=== PATIENT | female | born 1950 | race Caucasian/White ===

== ENCOUNTER 2018-05-24 08:58 | Emergency (ER) | payer OTHER ==
[2018-05-24 09:05] VITALS: BP 147/85; PULSE 77; TEMP 98.2; BMI 39.1
--- NOTE | 2018-05-24 09:35 | PDOC ---
History of Present Illness - General Chief Complaint: Eye Problem Stated Complaint: EYE PROBLEM Time Seen by Provider: 05/24/18 09:22 History Source: Patient Exam Limitations: Clinical Condition - History of Present Illness Initial Comments: 05/24/18 09:35 Patient with history of hypertension and diabetes presenting with complain of redness in bilateral eyes and swelling around the eyelids for a week now. Patient saw ophthalmology 4 days ago who prescribed her Pataday ALLERGY eyedrops and reported symptoms not improving with the prescribed eye drops. Denies any other symptoms Timing/Duration: 1 week Past History - Past Medical History Allergies/Adverse Reactions: Allergies Allergy/AdvReac Type Severity Reaction Status Date / Time No Known Allergies Allergy Verified 05/24/18 09:02 Home Medications: Ambulatory Orders Ketotifen Fumarate [Zaditor] 2 drop OP BID PRN #1 bottle 05/24/18 Loratadine 10 mg PO DAILY #10 tablet 05/24/18 COPD: No Diabetes: Yes (TYPE II, ORAL MEDS) HTN: Yes Hypercholesterolemia: Yes - Surgical History Appendectomy: Yes - Suicide/Smoking/Psychosocial Hx Smoking Status: No Smoking History: Never smoked Number of Cigarettes Smoked Daily: 0 Information on smoking cessation initiated: No Substance Use Type: None Review of Systems - Review of Systems Able to Perform ROS?: Yes Is the patient limited Belgian proficient: No Constitutional: No: Chills, Diaphoresis, Fever, Loss of Appetite, Malaise, Night Sweats, Weakness, Weight Stable, Unintentional Wgt. Loss, Unexplained wgt Loss, Other HEENTM: Yes: Eye Pain, Tearing. No: Blurred Vision, Recent change in vision, Double Vision, Cataracts, Ear Pain, Ocular Prothesis, Ear Discharge, Nose Pain, Nose Congestion, Tinnitus, Nose Bleeding, Hearing Loss, Throat Pain, Throat Swelling, Mouth Pain, Dental Problems, Difficulty Swallowing, Mouth Swelling, Other Respiratory: No: Cough, Orthopnea, Shortness of Breath, SOB with Exertion, SOB at Rest, Stridor, Wheezing, Productive cough, Hemoptysis, Other Cardiac (ROS): No: Chest Pain, Edema, Irregular Heart Rate, Lightheadedness, Palpitations, Syncope, Chest Tightness, Other ABD/GI: No: Abdominal Distended, Abd. Pain w/ defecation, Blood Streaked Bowels , Constipated, Diarrhea, Difficulty Swallowing, Nausea, Poor Appetite, Poor Fluid Intake, Rectal Bleeding, Vomiting, Indigestion, Abdominal cramping, Tarry Stools, Other Musculoskeletal: No: Back Pain, Gout, Joint Pain, Joint Swelling, Muscle Pain, Muscle Weakness, Neck Pain, Joint Stiffness, Other All Other Systems: Reviewed and Negative *Physical Exam - Vital Signs Last Vital Signs Temp Pulse Resp BP Pulse Ox 98.2 F 77 18 147/85 95 05/24/18 09:02 05/24/18 09:02 05/24/18 09:02 05/24/18 09:02 05/24/18 09:02 - Physical Exam Comments: 05/24/18 09:37 GENERAL: Well developed, well nourished. Awake and alert. No acute distress. HEENT: Mildly injected bilateral conjunctivae. Moderate swelling around bilateral upper and lower eyelids. No erythema to eyelids.Normocephalic, atraumatic. PERRLA, EOMI. Sclera are non-icteric. Moist mucous membranes. Oropharynx is clear. NECK: Supple. Full ROM. No JVD. Carotid pulses 2+ and symmetric, without bruits. No thyromegaly. No lymphadenopathy. CARDIOVASCULAR: Regular rate and rhythm. No murmurs, rubs, or gallops. Distal pulses are 2+ and symmetric. PULMONARY: No evidence of respiratory distress. Lungs clear to auscultation bilaterally. No wheezing, rales or rhonchi. ABDOMINAL: Soft. Non-tender. Non-distended. No rebound or guarding. No organomegaly. Normoactive bowel sounds. MUSCULOSKELETAL Normal range of motion at all joints. No bony deformities or tenderness. No CVA tenderness. EXTREMITIES: No cyanosis. No clubbing. No edema. No calf tenderness. SKIN: Warm and dry. Normal capillary refill. No rashes. No jaundice. NEUROLOGICAL: Alert, awake, appropriate. Cranial nerves 2-12 intact. No deficits to light touch and temperature in face, upper extremities and lower extremities. No motor deficits in the in face, upper extremities and lower extremities. Normoreflexic in the upper and lower extremities. Normal speech. Toes are down- going bilaterally. Gait is normal without ataxia. PSYCHIATRIC: Cooperative. Good eye contact. Appropriate mood and affect. General Appearance: Yes: Nourished, Appropriately Dressed. No: Apparent Distress Medical Decision Making - Medical Decision Making 05/24/18 09:38 Patient with history of hypertension and diabetes presenting with complain of 1 week history of redness and swelling to bilateral eyes which she saw ophthalmology and was being treated for ALLERGY conjunctivitis. Exam shows mildly injected bilateral conjunctivae was swelling of bilateral upper and lower eyelids consistent with ALLERGIC rhinitis and conjunctivitis. Patient will be treated with different eyedrops and antihistamine with ophthalmology follow-up *DC/Admit/Observation/Transfer Diagnosis at time of Disposition: Conjunctivitis Qualifiers: Conjunctivitis type: acute Acute conjunctivitis type: unspecified Laterality: bilateral Qualified Code(s): H10.33 - Unspecified acute conjunctivitis, bilateral - Discharge Dispostion Disposition: HOME Condition at time of disposition: Stable Decision to Admit order: No - Prescriptions Prescriptions: Ketotifen Fumarate [Zaditor] 2 drop OP BID PRN #1 bottle PRN Reason: eye redness Loratadine 10 mg PO DAILY #10 tablet - Referrals Referrals: Karen Wylie [Primary Care Provider] - Ana Maria Bueno MD [Staff Physician] - - Patient Instructions Printed Discharge Instructions: How to Instill Eye Drops Additional Instructions: Use medications as prescribed. Follow-up with typewriter repairer as scheduled - Post Discharge Activity
== END 2018-05-24 10:01 | disposition home or self-care (01) ==
LOC: JERFT 08:58
DX: H10.33 Unspecified acute conjunctivitis, bilateral (principal); I10 Essential (primary) hypertension; E11.9 Type 2 diabetes mellitus without complications; Z79.84 Long term (current) use of oral hypoglycemic drugs; E78.00 Pure hypercholesterolemia, unspecified
CPT/HCPCS: 99281-25

== ENCOUNTER → 2018-06-24 | Day surgery (SDC) | payer OTHER ==
--- NOTE | 2018-06-25 17:21 | PATH ---
Surgical Pathology Report Patient Name: MELISSA LEY [facility]. Rec. #: [id number] /Age/Gender: 1950 (Age: 67) / F Account: [id number] Location: [facility] Taken: 06/24/2018 Received: 06/24/2018 Reported: 06/25/2018 Physicians: Jose Garcia M.D. Specimen(s) Received A: LEFT BREAST SPECIMEN WITH CALCIFICATIONS B: LEFT BREAST SPECIMEN WITHOUT CALCIFICATIONS Clinical History Nonpalpable lesion Mammographic findings: Microcalcification, suspicious Final Diagnosis A. BREAST, LEFT, WITH CALCIFICATIONS, STEREOTACTIC CORE BIOPSY: RADIAL SCLEROSING LESION WITH ASSOCIATED FIBROCYSTIC CHANGES INCLUDING STROMAL FIBROSIS/ELASTOSIS, MICROCYSTS, APOCRINE METAPLASIA, FOCAL USUAL DUCTAL HYPERPLASIA, AND RARE MICROCALCIFICATIONS. B. BREAST, LEFT, WITHOUT CALCIFICATIONS, STEREOTACTIC CORE BIOPSY: RADIAL SCLEROSING LESION WITH ASSOCIATED FIBROCYSTIC CHANGES INCLUDING STROMAL FIBROSIS/ELASTOSIS, MICROCYSTS, APOCRINE METAPLASIA, SCLEROSING ADENOSIS, FOCAL USUAL DUCTAL HYPERPLASIA, AND MICROCALCIFICATIONS. Comment: Suggest clinical/radiological relation. Electronically Signed Mavis Vasquez M.D. Gross Description A. Received in formalin labeled "left breast with calcifications," are 4 steele-yellow, cylindrical portions of fibroadipose tissue ranging from 1.5-2.0 cm in length and averaging 0.3 cm in diameter. The specimens are submitted in toto in one cassette. B. Received in formalin labeled "left breast without calcifications," are 4 steele-yellow, cylindrical portions of fibroadipose tissue ranging from 1.2-2.0 cm in length and averaging 0.3 cm in diameter. The specimens are submitted in toto in one cassette. Time to formalin fixation: Less than one minute Total formalin fixation time: Approximately 8 hours. /06/24/2018 saudi/06/24/2018
== END | disposition home or self-care (01) ==
LOC: FMAMMOTONE 08:37
PROVIDERS: ATTEND Internal Medicine
PROC: 0HBU3ZX Excision of Left Breast, Percutaneous Approach, Diagnostic (ICD-10-PCS; principal; 2018-06-24)
DX: N60.12 Diffuse cystic mastopathy of left breast (principal); N60.32 Fibrosclerosis of left breast; N60.82 Other benign mammary dysplasias of left breast; N64.89 Other specified disorders of breast; R92.1 Mammographic calcification found on diagnostic imaging of breast
CPT/HCPCS: 19081; 87899; 88305-TC; A4648

== ENCOUNTER 2019-08-01 07:56 | Inpatient (IN) | payer OTHER ==
[2019-08-01] MEDS ORDERED: morphine CARPU-JECT 4 MG/1 ML DISP.SYRIN IVPUSH ONE ×2 (08:20→13:27)
[2019-08-01] MEDS ORDERED: ONDANSETRON 4 MG/2 ML VIAL IVPUSH ONE (08:21)
[2019-08-01] MEDS ORDERED: morphine SULFATE 4 MG/ML VIAL ONE ×2 (08:25→13:47)
[2019-08-01] MEDS ORDERED: ONDANSETRON 4 MG/2 ML VIAL ONE (08:26)
[2019-08-01] MEDS ORDERED: SODIUM CHLORIDE 1,000 ML IV STA (08:36)
[2019-08-01 08:44] LABS: BASO % 0.3 % (0-2.0); HEMATOCRIT 47.4 % (32.4-45.2); HEMOGLOBIN 15.9 GM/dL (10.7-15.3); LYMPH % 7.7 % (8-40); MCH 28.1 pg (25.7-33.7); MCHC 33.6 g/dl (32.0-36.0); MEAN CELL VOLUME 83.5 fl (80-96); MEAN PLT VOLUME 9.2 fl (7.5-11.1); MONO % 3.1 % (3.8-10.2); NEUT % 88.9 % (42.8-82.8); PLATELET COUNT 256 K/MM3 (134-434); RBC 5.68 M/mm3 (3.60-5.2); RDW 14.3 % (11.6-15.6); WHITE BLOOD COUNT 17.9 K/mm3 (4.0-10.0)
--- NOTE | 2019-08-01 08:53 | PDOC ---
History of Present Illness - General Chief Complaint: Blood Pressure Problem Stated Complaint: VOMITING,ABD PAIN Time Seen by Provider: 08/01/19 08:15 History Source: Patient Exam Limitations: No Limitations - History of Present Illness Initial Comments: 08/01/19 13:26 68 yo F with a hx of HTN, HLD, and DM presents to the emergency department with sudden onset of epigastric pain that radiates to the back that awoken her overnight. Per the patient, she began having epigastric pain last night that radiated to the RUQ and LUQ regions. The patient states the pain radiated to her back over night. The pain is rated 10/10 and described as sharp without aggravating or relieving factors. Endorses concurrent nausea and vomiting. Denies the following: fever, chills, SOB, visual disturbance, dysuria, and diarrhea. Allergies: NKDA Past History - Past Medical History Allergies/Adverse Reactions: Allergies Allergy/AdvReac Type Severity Reaction Status Date / Time No Known Allergies Allergy Verified 08/01/19 08:09 Home Medications: Ambulatory Orders Atorvastatin Ca [Lipitor] 10 mg PO HS 08/01/19 Difluprednate [Durezol] 5 ml OP TID 08/01/19 Losartan Potassium [Cozaar -] 50 mg PO DAILY 08/01/19 Metformin HCl [Glucophage] 500 mg PO TID 08/01/19 Amoxicillin/Potassium Clav [Augmentin 875-125 Tablet] 1 each PO BID #10 tablet 08/04/19 Amlodipine Besylate [Norvasc -] 10 mg PO DAILY #30 tablet 08/05/19 COPD: No Diabetes: Yes (TYPE II, ORAL MEDS) HTN: Yes Hypercholesterolemia: Yes - Surgical History Appendectomy: Yes - Psycho Social/Smoking Cessation Hx Smoking Status: No Smoking History: Never smoked Number of Cigarettes Smoked Daily: 0 Hx Alcohol Use: No Drug/Substance Use Hx: No Substance Use Type: None Review of Systems - Review of Systems Able to Perform ROS?: Yes Is the patient limited Mexican proficient: No Constitutional: No: Chills, Diaphoresis, Fever, Weakness HEENTM: No: Eye Pain, Ear Pain, Nose Pain, Throat Pain, Mouth Pain Respiratory: No: Cough, Shortness of Breath, Hemoptysis Cardiac (ROS): No: Chest Pain, Lightheadedness, Palpitations, Chest Tightness ABD/GI: Yes: Nausea, Vomiting, Abdominal cramping. No: Constipated, Diarrhea, Rectal Bleeding, Tarry Stools : No: Dysuria, Flank Pain, Hematuria Musculoskeletal: No: Back Pain, Joint Pain, Neck Pain Integumentary: No: Bruising, Erythema, Rash Neurological: No: Headache, Numbness, Tingling, Tremors Psychiatric: No: Change in Appetite Endocrine: No: Unexplained Weight Gain Hematologic/Lymphatic: No: Anemia *Physical Exam - Vital Signs Last Vital Signs Temp Pulse Resp BP Pulse Ox 97.6 F 104 H 20 233/125 H 96 08/01/19 08:09 08/01/19 08:09 08/01/19 08:09 08/01/19 08:09 08/01/19 08:09 - Physical Exam General Appearance: Yes: Nourished, Appropriately Dressed, Mild Distress, Obese. No: Intoxicated HEENT: positive: EOMI, VIVIAN, Normal ENT Inspection, Normal Voice, Symmetrical, TMs Normal, Pharynx Normal, Hearing Grossly Normal. negative: Pale Conjunctivae , Scleral Icterus (R), Scleral Icterus (L), Muffled/Hoarse voice, Pharyngeal Erythema, Tonsillar Exudate, Tonsillar Erythema, Nasal Congestion, Rhinorrhea, Excessive drooling Neck: positive: Trachea midline, Supple. negative: Tender, Lymphadenopathy (R) , Lymphadenopathy (L), Tender lateral, Tender midline Respiratory/Chest: positive: Crackles (bilaterally at bases). negative: Chest Tender, Lungs Clear, Normal Breath Sounds, Respiratory Distress, Accessory Muscle Use Cardiovascular: positive: Regular Rhythm, Regular Rate, S1, S2. negative: Systolic Murmur Gastrointestinal/Abdominal: positive: Normal Bowel Sounds, Flat, Soft. negative : Tender (hernia noted on exam that is reducible), Mass Lymphatic: negative: Adenopathy Musculoskeletal: positive: Normal Inspection. negative: CVA Tenderness, Vertebral Tenderness Extremity: positive: Normal Capillary Refill, Normal Range of Motion, Swelling ( bilateral edema). negative: Tender Integumentary: positive: Normal Color, Dry, Warm Neurologic: positive: tutorial laboratory supervisor II-XII NML intact, Fully Oriented, Alert, Normal Mood/ Affect, Normal Response, Motor Strength 5/5 Heart Score/ECG Review - History History: Moderately suspicious - Electrocardiogram EKG: Normal - Age Age: >/= 65 - Risk Factors Risk Factors Heart Score: Yes Hx Hypercholesterolemia, Yes Hx Hypertension, Yes Hx Diabetes, Yes Hx Obesity Based on the list above the patient has:: >/=3 risk factors or Hx atherosclerotic disease - Troponin Troponin: </= normal limit - Score Heart Score - Total: 5 ED Treatment Course - LABORATORY CBC & Chemistry Diagram: 08/05/19 05:35 08/05/19 05:35 - ADDITIONAL ORDERS Additional order review: 08/01/19 08:20 RBC 5.68 H MCV 83.5 MCHC 33.6 RDW 14.3 MPV 9.2 Neutrophils % 88.9 H Lymphocytes % 7.7 L Monocytes % 3.1 L Eosinophils % 0.0 Basophils % 0.3 - Medications Given in the ED: ED Medications Discontinued Medications Generic Name Dose Route Start Last Admin Trade Name Freq PRN Reason Stop Dose Admin Morphine Sulfate 4 mg 08/01/19 08:20 08/01/19 08:25 Morphine Injection - IVPUSH 08/01/19 08:21 4 mg ONCE ONE Administration Ondansetron HCl 4 mg 08/01/19 08:21 08/01/19 08:25 Zofran Injection IVPUSH 08/01/19 08:22 4 mg ONCE ONE Administration Medical Decision Making - Critical Care Time Total Critical Care Time (minutes): 60 Critical Care Statement: The care of this patient involved high complexity decision making to prevent further life threatening deterioration of the patient 's condition and/or to evaluate & treat vital organ system(s) failure or risk of failure. - Medical Decision Making 68 yo F with a hx of HTN, HLD, and DM presents to the emergency department with sudden onset of epigastric pain that radiates to the back that awoken her overnight. Initial vitals: Initial Vital Signs Temp Pulse Resp BP Pulse Ox 97.6 F 104 H 20 233/125 H 96 08/01/19 08:09 08/01/19 08:09 08/01/19 08:09 08/01/19 08:09 08/01/19 08:09 Patient presents to the emergency department in distress with abdominal pain with radiation to the back in the setting of severe HTN (233/125). per the patient, she is compliant with her medications. Radial pulses intact bilaterally and equal. Ddx: pancreatitis vs aortic dissection vs aortic aneurysm sentinel bleed vs mesenteria ischemia. Laboratory Tests 08/01/19 08/01/19 08/01/19 07:08 08:20 08:20 WBC 17.9 H RBC 5.68 H Hgb 15.9 H Hct 47.4 H MCV 83.5 MCH 28.1 MCHC 33.6 RDW 14.3 Plt Count 256 MPV 9.2 Absolute Neuts (auto) 15.9 H Neutrophils % 88.9 H Lymphocytes % 7.7 L Monocytes % 3.1 L Eosinophils % 0.0 Basophils % 0.3 Nucleated RBC % 0 PT with INR 12.20 INR 1.03 PTT (Actin FS) 32.9 Sodium Potassium Chloride Carbon Dioxide Anion Gap BUN Creatinine Est GFR (CKD-EPI)AfAm Est GFR (CKD-EPI)NonAf Random Glucose Calcium Total Bilirubin AST ALT Alkaline Phosphatase Creatine Kinase Creatine Kinase Index CK-MB (CK-2) Troponin I Total Protein Albumin Lipase Urine Color Urine Appearance Urine pH Ur Specific [place] Urine Protein Urine Glucose (UA) Urine Ketones Urine Blood Urine Nitrite Urine Bilirubin Urine Urobilinogen Ur Leukocyte Esterase Urine WBC (Auto) Urine RBC (Auto) U Epithel Cells (Auto) Urine Bacteria (Auto) Blood Type AB POSITIVE Antibody Screen 08/01/19 08/01/19 08/01/19 08:20 08:20 11:20 WBC RBC Hgb Hct MCV MCH MCHC RDW Plt Count MPV Absolute Neuts (auto) Neutrophils % Lymphocytes % Monocytes % Eosinophils % Basophils % Nucleated RBC % PT with INR INR PTT (Actin FS) Sodium 135 L Potassium 4.0 Chloride 99 Carbon Dioxide 25 Anion Gap 11 BUN 14.0 Creatinine 1.1 Est GFR (CKD-EPI)AfAm 58.91 Est GFR (CKD-EPI)NonAf 50.83 Random Glucose 223 H Calcium 9.8 Total Bilirubin 0.5 AST 28 ALT 38 Alkaline Phosphatase 107 Creatine Kinase 166 Creatine Kinase Index 1.2 CK-MB (CK-2) 2.0 Troponin I < 0.02 Total Protein 8.9 H Albumin 4.0 Lipase 199 Urine Color Yellow Urine Appearance Clear Urine pH 6.0 Ur Specific [place] 1.015 Urine Protein 3+ H Urine Glucose (UA) Negative Urine Ketones Negative Urine Blood 1+ H Urine Nitrite Negative Urine Bilirubin Negative Urine Urobilinogen 0.2 Ur Leukocyte Esterase Negative Urine WBC (Auto) 2-7 Urine RBC (Auto) 3-5 U Epithel Cells (Auto) Few Urine Bacteria (Auto) None seen Blood Type AB POSITIVE Antibody Screen Negative Labtalol was given for BP support. Morphine for analgesic control. zofran for nausea control. leukocytosis noted with a negative trop and lipase. UA negative Patient's imaging was negative for acute process. no dissection or aneurysm noted. EKG: sinus rhythm with APCs with QTc prolongation (526 ms) with bifasicular block). No ST elevations or depressions. RUQ consistent with cholecysitits. Patient was endorsed to admission team for cholecystitis and HTN urgency with trending troponins to rule out ACS. Discharge - Discharge Information Problems reviewed: Yes Clinical Impression/Diagnosis: Chest pain, RUQ abdominal pain, HTN (hypertension) - Follow up/Referral - Patient Discharge Instructions - Post Discharge Activity
[2019-08-01] MEDS ORDERED: LABETALOL HCL 5 MG/1 ML (100MG/20 ML VIAL) IVPUSH ONE (09:03)
[2019-08-01 09:07] LABS: INR 1.03 (0.83-1.09); PROTHROMBIN TIME (PATIENT) 12.2 SEC (9.7-13.0)
[2019-08-01 09:09] LABS: ACTIVATED PTT 32.9 SECONDS (25.2-36.5)
[2019-08-01] MEDS ORDERED: LABETALOL HCL 5 MG/1 ML (200MG/40ML VIAL) IVPB ONE (09:18)
[2019-08-01 09:22] LABS: ALK PHOS 107 U/L (45-117); ANION GAP 11 MMOL/L (8-16); BILIRUBIN,TOTAL 0.5 mg/dL (0.2-1); CALCIUM 9.8 mg/dL (8.5-10.1); CHLORIDE 99 mmol/L (98-107); CO2 25 mmol/L (21-32); CREATININE 1.1 mg/dL (0.55-1.3); GLUCOSE,RANDOM 223 mg/dL (74-106); LIPASE 199 U/L (73-393); SGOT/AST 28 U/L (15-37); SGPT/ALT 38 U/L (13-61); SODIUM 135 mmol/L (136-145); TOT PROT 8.9 g/dl (6.4-8.2)
[2019-08-01] MEDS ORDERED: ACETAMINOPHEN 1000 MG/100 ML VIAL (NON FORMULARY) IVPB ONE (09:30)
--- NOTE | 2019-08-01 09:32 | PDOC ---
Attending Attestation - Resident Resident Name: Herbert Peacock - ED Attending Attestation I have performed the following: I have examined & evaluated the patient, The case was reviewed & discussed with the resident, I agree w/resident's findings & plan - HPI HPI: 08/01/19 09:27 5-year-old female with history of hypertension, diabetes, high cholesterol presents with abdominal pain since midnight with nausea/vomiting. Patient was in her usual state of relatively good health, late last night began developing epigastric pain that was persistent throughout the night, associated with nonbloody nonbilious nausea/vomiting, normal bowel movements, no urinary complaints. No chest pain or shortness of breath, presents for evaluation now for persistent symptoms. Patient was noted to be hypertensive on arrival, reports compliance with her medications, at baseline systolic blood pressures in the 150 range. On review of systems, she denied any headache/vision change/speech change/focal deficit/shortness of breath. - Physicial Exam PE: 08/01/19 09:28 Significantly elevated blood pressure as noted, slight tachycardia, O2 sat ranging between 90 to 97% on room air Alert, obese female lying in stretcher speaking full sentences in mild distress Pupils are reactive bilaterally, speech is clear, no JVD Heart is overall regular with frequent premature beats on monitor, lungs with slight crackles at both bases Abdomen is soft, no palpable pulsatile masses, easily reducible umbilical hernia , no CVA tenderness. Tenderness with some guarding in the right mid/right upper quadrant, no rash. Trace bilateral lower externally edema Neurologically intact - Critical Care Time Total Critical Care Time: 60 Critical Care Statement: The care of this patient involved high complexity decision making to prevent further life threatening deterioration of the patient 's condition and/or to evaluate & treat vital organ system(s) failure or risk of failure. - Medical Decision Making 08/01/19 09:30 5-year-old female with history of hypertension, diabetes, high cholesterol presents with severely elevated blood pressures and epigastric pain throughout the night, no specific cardiopulmonary complaints or neurological complaints. Given the epigastric/back pain initially reported in the setting of very elevated blood pressures, concern for aortic dissection was high. IV access was obtained, EKG was performed, and stat CT of the chest/abdomen/pelvis was performed to rule out dissection. Patient was given labetalol for blood pressure control, morphine and Zofran for symptom control Labs sent, imaging pending Differential includes dissection, ACS, hypertensive emergency versus primary GI pathology such as gastritis or cholelithiasis/cholecystitis. 08/01/19 11:10 leukocytosis 18, remaining labs wnl. BP improved after labetalol, 140/73 and HR 70s and sinus. Remains comfortable without acute distress. CTAP without evidence of dissection/aneurysm or mesenteric ischemia. proceed with admission for HTN urgency, COURTNEY. RUQ U/S and UA pending given leukocytosis. Heart Score/ECG Review #1 ECG reviewed & interpreted by me at: 08:56 General ECG Interpretation: Sinus Rhythm (sinus with APCs), Normal Rate (100), Normal Intervals (qtc prlonged 526, QRS 160 with bifascicular block (RBBB+LAFB)) , No acute ischemic changes Compared to previous ECG there are: Previous ECG unavail
[2019-08-01] MEDS ORDERED: ACETAMINOPHEN INJECTION 100 ML IVPB ONE (09:34)
[2019-08-01 11:40] LABS: URINE APPEARANCE Clear; URINE BILIRUBIN Negative (NEGATIVE); URINE COLOR Yellow; URINE GLUCOSE (UA) Negative (NEGATIVE); URINE KETONE Negative (NEGATIVE); URINE LEUK ESTERASE Negative (NEGATIVE); URINE NITRITE Negative (NEGATIVE); URINE PROTEIN 3+ (NEGATIVE); URINE UROBILINOGEN 0.2 mg/dL (0.2-1.0)
[2019-08-01 15:05] LABS: EPI CELLS FEW /HPF (0-5/HPF); URINE BACTERIA NONE SEEN /hpf (NEGATIVE)
--- NOTE | 2019-08-01 17:20 | HP ---
Admitting History and Physical - Primary Care Physician PCP: Tracey Wisdom - Admission History of Present Illness: 68 yo F with a hx of HTN, HLD, and DM presents to the emergency department with sudden onset of epigastric pain that radiates to the back that awoken her overnight. Per the patient, she began having epigastric pain last night that radiated to the RUQ and LUQ regions. The patient states the pain radiated to her back over night. The pain is rated 10/10 and described as sharp without aggravating or relieving factors. Endorses concurrent nausea and vomiting. - Smoking History Smoking history: Never smoked Aproximately how many cigarettes per day: 0 - Alcohol/Substance Use Hx Alcohol Use: No Home Medications - Allergies Allergies/Adverse Reactions: Allergies Allergy/AdvReac Type Severity Reaction Status Date / Time No Known Allergies Allergy Verified 08/01/19 08:09 - Home Medications Home Medications: Ambulatory Orders Atorvastatin Ca [Lipitor] 10 mg PO HS 08/01/19 Difluprednate [Durezol] 5 ml OP TID 08/01/19 Losartan Potassium [Cozaar -] 50 mg PO DAILY 08/01/19 Metformin HCl [Glucophage] 500 mg PO TID 08/01/19 Physical Examination Vital Signs: Vital Signs Temperature 97.7 F 08/01/19 15:34 Pulse Rate 107 H 08/01/19 17:13 Respiratory Rate 16 08/01/19 17:13 Blood Pressure 161/64 08/01/19 17:13 O2 Sat by Pulse Oximetry (%) 95 08/01/19 15:34 Constitutional: Yes: No Distress HENT: Yes: Atraumatic Neck: Yes: Supple Cardiovascular: Yes: Regular Rate and Rhythm Respiratory: Yes: CTA Bilaterally Gastrointestinal: Yes: Tenderness (ruq) Extremities: Yes: WNL Neurological: Yes: Alert, Oriented Labs: CBC, BMP 08/01/19 08:20 08/01/19 08:20 Imaging - Results Cat Scan: Report Reviewed Problem List - Problems (1) RUQ abdominal pain Assessment/Plan: acute kishore d/w surgery need cardiac clearance Code(s): R10.11 - RIGHT UPPER QUADRANT PAIN (2) Chest pain Assessment/Plan: troponins negative Code(s): R07.9 - CHEST PAIN, UNSPECIFIED Assessment/Plan Laboratory Tests 08/01/19 08/01/1908/01/19 08:20 08:20 08:20 WBC 17.9 H RBC 5.68 H Hgb 15.9 H Hct 47.4 H MCV 83.5 MCH 28.1 MCHC 33.6 RDW 14.3 Plt Count 256 MPV 9.2 Absolute Neuts (auto) 15.9 H Neutrophils % 88.9 H Lymphocytes % 7.7 L Monocytes % 3.1 L Eosinophils % 0.0 Basophils % 0.3 Nucleated RBC % 0 PT with INR 12.20 INR 1.03 PTT (Actin FS) 32.9 Sodium Potassium Chloride Carbon Dioxide Anion Gap BUN Creatinine Est GFR (CKD-EPI)AfAm Est GFR (CKD-EPI)NonAf Random Glucose Calcium Total Bilirubin AST ALT Alkaline Phosphatase Creatine Kinase Creatine Kinase Index CK-MB (CK-2) Troponin I Total Protein Albumin Lipase Urine Color Urine Appearance Urine pH Ur Specific [place] Urine Protein Urine Glucose (UA) Urine Ketones Urine Blood Urine Nitrite Urine Bilirubin Urine Urobilinogen Ur Leukocyte Esterase Urine WBC (Auto) Urine RBC (Auto) U Epithel Cells (Auto) Urine Bacteria (Auto) Blood Type AB POSITIVE Antibody Screen Negative 08/01/19 08/01/19 08:20 11:20 WBC RBC Hgb Hct MCV MCH MCHC RDW Plt Count MPV Absolute Neuts (auto) Neutrophils % Lymphocytes % Monocytes % Eosinophils % Basophils % Nucleated RBC % PT with INR INR PTT (Actin FS) Sodium 135 L Potassium 4.0 Chloride 99 Carbon Dioxide 25 Anion Gap 11 BUN 14.0 Creatinine 1.1 Est GFR (CKD-EPI)AfAm 58.91 Est GFR (CKD-EPI)NonAf 50.83 Random Glucose 223 H Calcium 9.8 Total Bilirubin 0.5 AST 28 ALT 38 Alkaline Phosphatase 107 Creatine Kinase 166 Creatine Kinase Index 1.2 CK-MB (CK-2) 2.0 Troponin I < 0.02 Total Protein 8.9 H Albumin 4.0 Lipase 199 Urine Color Yellow Urine Appearance Clear Urine pH 6.0 Ur Specific [place] 1.015 Urine Protein 3+ H Urine Glucose (UA) Negative Urine Ketones Negative Urine Blood 1+ H Urine Nitrite Negative Urine Bilirubin Negative Urine Urobilinogen 0.2 Ur Leukocyte Esterase Negative Urine WBC (Auto) 2-7 Urine RBC (Auto) 3-5 U Epithel Cells (Auto) Few Urine Bacteria (Auto) None seen Blood Type Antibody Screen Active Medications Generic Name Dose Route Start Last Admin Trade Name Freq PRN Reason Stop Dose Admin Acetaminophen 1,000 mg 08/02/19 15:59 Ofirmev Injection - IVPB Q6H PRN FEVER Enalaprilat 1.25 mg 08/02/19 16:00 08/02/19 19:12 Vasotec Injection - IVPB 1.25 mg Q6H-IV OCHOA Administration Sodium Chloride 1,000 mls @ 75 mls/hr 08/01/19 17:30 08/02/19 19:10 Normal Saline - IV 75 mls/hr ASDIR OCHOA Administration Piperacillin Sod/Tazobactam 50 mls @ 100 mls/hr 08/02/19 19:56 Sod 3.375 gm/ Dextrose IVPB 08/02/19 20:25 ONCE ONE Protocol Morphine Sulfate 2 mg 08/01/19 17:24 08/01/19 18:29 Morphine Sulfate IVPUSH 2 mg Q4H PRN Administration PAIN LEVEL 4 - 6 Ondansetron HCl 4 mg 08/01/19 17:24 08/01/19 18:30 Zofran Injection IVPB 4 mg Q4H PRN Administration NAUSEA AND/OR VOMITING Pantoprazole Sodium 40 mg 08/01/19 17:30 08/02/19 10:25 Protonix Iv IVPUSH 40 mg DAILY OCHOA Administration
[2019-08-01] MEDS ORDERED: ONDANSETRON 4 MG/2 ML VIAL IVPB PRN (17:24)
[2019-08-01] MEDS: SODIUM CHLORIDE 1,000 ML IV SCH (18:18)
[2019-08-01] MEDS: PANTOPRAZOLE SODIUM 40 MG VIAL IVPUSH SCH (18:20)
[2019-08-01] MEDS: MORPHINE SULFATE 2 MG/ML VIAL IVPUSH PRN (18:29)
[2019-08-01 18:53] VITALS: BMI 40.2
[2019-08-02] MEDS: SODIUM CHLORIDE 1,000 ML IV SCH ×2 (06:14→19:10)
[2019-08-02 07:54] LABS: BASO % 0.5 % (0-2.0); HEMATOCRIT 40.9 % (32.4-45.2); HEMOGLOBIN 13.3 GM/dL (10.7-15.3); LYMPH % 6.5 % (8-40); MCH 27.4 pg (25.7-33.7); MCHC 32.6 g/dl (32.0-36.0); MEAN CELL VOLUME 84.1 fl (80-96); MEAN PLT VOLUME 9.6 fl (7.5-11.1); MONO % 9.2 % (3.8-10.2); NEUT % 83.8 % (42.8-82.8); PLATELET COUNT 208 K/MM3 (134-434); RBC 4.87 M/mm3 (3.60-5.2); RDW 14.4 % (11.6-15.6); WHITE BLOOD COUNT 24.4 K/mm3 (4.0-10.0)
[2019-08-02 08:27] LABS: BILIRUBIN,TOTAL 0.8 mg/dL (0.2-1); BLOOD UREA NITROGEN 23.6 mg/dL (7-18); CALCIUM 8.5 mg/dL (8.5-10.1); CREATININE 1.3 mg/dL (0.55-1.3); POTASSIUM 3.5 mmol/L (3.5-5.1); TOT PROT 6.6 g/dl (6.4-8.2)
--- NOTE | 2019-08-02 08:28 | CONSULT ---
- Consultation REQUESTING PROVIDER: CONSULT REQUEST: We have been asked to surgically evaluate this patient for acute cholecystitis PCP:Tracey Wisdom HISTORY OF PRESENT ILLNESS: 68yo F admitted to the hospital for abd pain/acute cholecystitis. Pt states that the pain started 2 days ago associated with n/v. Pt states that the pain started overnight and was in the epigastric area radiating to her back. Pt denies fever or chills. Pt was told several years ago in the past that she had gallstones, but they never gave her any problems. Pt states that the pain is a little better, but still present especially in the RUQ. PMHx: DM, HTN, HLD PSHx: Appendectomy 50yrs ago Home Medications Medication Instructions Recorded Atorvastatin Ca [Lipitor] 10 mg PO HS 08/01/19 Difluprednate [Durezol] 5 ml OP TID 08/01/19 Losartan Potassium [Cozaar -] 50 mg PO DAILY 08/01/19 Metformin HCl [Glucophage] 500 mg PO TID 08/01/19 Allergies Allergy/AdvReac Type Severity Reaction Status Date / Time No Known Allergies Allergy Verified 08/01/19 08:09 REVIEW OF SYSTEMS: CONSTITUTIONAL: Absent: fever, chills, diaphoresis, generalized weakness, malaise, loss of appetite, weight change CARDIOVASCULAR: Absent: chest pain, syncope, palpitations, irregular heart rate, lightheadedness , peripheral edema RESPIRATORY: Absent: cough, shortness of breath, dyspnea with exertion, wheezing, stridor, hemoptysis PHYSICAL EXAM: GENERAL: Awake, alert, and fully oriented, in no acute distress. HEAD: Normal with no signs of trauma. EYES: PERRL, sclera anicteric, conjunctiva clear. NECK: Normal ROM, supple without lymphadenopathy, JVD, or masses. LUNGS: Breathing comfortably, No accessory muscle use. ABDOMEN: Soft, RUQ tenderness, non distended, umbilical hernia present, no guarding, no rebound, no masses. No organomegaly. LOWER EXTREMITIES: warm, well-perfused. No calf tenderness. No peripheral edema. NEUROLOGICAL: Normal speech, gait not observed. PSYCH: Cooperative. Good eye contact. Appropriate mood and affect. SKIN: Warm, dry, normal turgor, no rashes or lesions noted. Vital Signs Temperature 100.3 F H 08/02/19 06:00 Pulse Rate 100 H 08/02/19 06:00 Respiratory Rate 16 08/02/19 06:00 Blood Pressure 142/66 08/02/19 06:00 O2 Sat by Pulse Oximetry (%) 95 08/02/19 04:29 Lab Results WBC 17.9 K/mm3 (4.0-10.0) H 08/01/19 08:20 RBC 5.68 M/mm3 (3.60-5.2) H 08/01/19 08:20 Hgb 15.9 GM/dL (10.7-15.3) H 08/01/19 08:20 Hct 47.4 % (32.4-45.2) H 08/01/19 08:20 MCV 83.5 fl (80-96) 08/01/19 08:20 MCHC 33.6 g/dl (32.0-36.0) 08/01/19 08:20 RDW 14.3 % (11.6-15.6) 08/01/19 08:20 Plt Count 256 K/MM3 (134-434) 08/01/19 08:20 Sodium 135 mmol/L (136-145) L 08/01/19 08:20 Potassium 4.0 mmol/L (3.5-5.1) 08/01/19 08:20 Chloride 99 mmol/L (98-107) 08/01/19 08:20 Carbon Dioxide 25 mmol/L (21-32) 08/01/19 08:20 Anion Gap 11 MMOL/L (8-16) 08/01/19 08:20 BUN 14.0 mg/dL (7-18) 08/01/19 08:20 Creatinine 1.1 mg/dL (0.55-1.3) 08/01/19 08:20 Random Glucose 223 mg/dL (74-106) H 08/01/19 08:20 Calcium 9.8 mg/dL (8.5-10.1) 08/01/19 08:20 Blood Type AB POSITIVE 08/01/19 08:20 Antibody Screen Negative 08/01/19 08:20 INR 1.03 (0.83-1.09) 08/01/19 08:20 RUQ Abdominal US: Gallstones with borderline wall thickening, trace pericholecystic fluid Problem List - Problems (1) Cholecystitis, acute Assessment/Plan: Plan -will take pt to OR for lap kishore later today, pt states she wanted to discuss with children first so will check back with her as well as check OR times. -NPO -IVF -abx -DVT and GI ppx Code(s): K81.0 - ACUTE CHOLECYSTITIS
[2019-08-02] MEDS: PANTOPRAZOLE SODIUM 40 MG VIAL IVPUSH SCH (10:25)
--- NOTE | 2019-08-02 11:27 | EKG ---
Test Reason : Blood Pressure : / mmHG Vent. Rate : 100 BPM Atrial Rate : 100 BPM P-R Int : 196 ms QRS Dur : 160 ms QT Int : 408 ms P-R-T Axes : 058 -89 015 degrees QTc Int : 526 ms SINUS RHYTHM WITH PREMATURE ATRIAL COMPLEXES RIGHT BUNDLE BRANCH BLOCK LEFT ANTERIOR FASCICULAR BLOCK BIFASCICULAR BLOCK MODERATE VOLTAGE CRITERIA FOR LVH, MAY BE NORMAL VARIANT ABNORMAL ECG NO PREVIOUS ECGS AVAILABLE Confirmed by MD Samantha, Rene ([id number]) on 08/02/2019 11:27:10 AM Referred By: Confirmed By:Rene Singh MD
[2019-08-02 12:07] LABS: ANISOCYTOSIS 0; MACROCYTOSIS 0; PLATELET ESTIMATE NORMAL
--- NOTE | 2019-08-02 13:01 | PN ---
Progress Note, Physician - Current Medication List Current Medications: Active Medications Sodium Chloride (Normal Saline -) 1,000 mls @ 75 mls/hr IV ASDIR OCHOA Last Admin: 08/02/19 06:14 Dose: 75 mls/hr Morphine Sulfate (Morphine Sulfate) 2 mg IVPUSH Q4H PRN PRN Reason: PAIN LEVEL 4 - 6 Last Admin: 08/01/19 18:29 Dose: 2 mg Ondansetron HCl (Zofran Injection) 4 mg IVPB Q4H PRN PRN Reason: NAUSEA AND/OR VOMITING Last Admin: 08/01/19 18:30 Dose: 4 mg Pantoprazole Sodium (Protonix Iv) 40 mg IVPUSH DAILY [facility] Last Admin: 08/02/19 10:25 Dose: 40 mg - Objective Vital Signs: Vital Signs Temperature 98.8 F 08/02/19 08:56 Pulse Rate 97 H 08/02/19 08:56 Respiratory Rate 18 08/02/19 08:56 Blood Pressure 163/79 08/02/19 08:56 O2 Sat by Pulse Oximetry (%) 96 08/02/19 10:00 Constitutional: Yes: No Distress HENT: Yes: Atraumatic Neck: Yes: Supple Cardiovascular: Yes: Regular Rate and Rhythm Respiratory: Yes: CTA Bilaterally Gastrointestinal: Yes: Normal Bowel Sounds, Tenderness (ruq) Extremities: Yes: WNL Neurological: Yes: Alert, Oriented Labs: CBC, BMP 08/02/19 07:08 08/02/19 07:08 INR, PTT INR 1.03 (0.83-1.09) 08/01/19 08:20 Problem List - Problems (1) RUQ abdominal pain Assessment/Plan: acute kishore d/w surgery need cardiac clearance Code(s): R10.11 - RIGHT UPPER QUADRANT PAIN (2) Chest pain Assessment/Plan: troponins negative Code(s): R07.9 - CHEST PAIN, UNSPECIFIED Assessment/Plan NEED CARDIAC CLEARANCE PER SURGEON
[2019-08-02] MEDS ORDERED: ACETAMINOPHEN 1000 MG/100 ML VIAL (NON FORMULARY) IVPB PRN (15:59)
--- NOTE | 2019-08-02 16:01 | CON.CARD ---
Consult Consult Specialty:: cardiology Reason for Consultation:: pre-op clearance (lap cholecystectomy) - History of Present Illness Chief Complaint: Pt A&Ox3; lying on left side; no pain presently. No dyspnea, palpitations, dizziness, or headache. No blurry vision. History of Present Illness: 68 year-old female (adria Ruff) with PM history of hypertension, diabetes, high cholesterol, obesity, sedentary lifestyle, presents with abdominal pain since midnight with nausea/vomiting. Patient was in her usual state of relatively good health, late last night began developing epigastric pain that was persistent throughout the night, associated with nonbloody nonbilious nausea/ vomiting, normal bowel movements, no urinary complaints. No chest pain or shortness of breath, presents for evaluation now for persistent symptoms. Patient was noted to be hypertensive on arrival, reports compliance with her medications, at baseline systolic blood pressures in the 150 range. On review of systems, she denied any headache/vision change/speech change/focal deficit/shortness of breath. Pt does no formal exercise (shes says"I'm lazy"), but has a6 steps in her house she walks up and down several times a day; no chest pain, dyppnea, or palpitations. - History Source History Provided By: Patient, Medical Record Limitations to Obtaining History: No Limitations - Past Medical History Cardio/Vascular: Yes: CHF (diastolic ), HTN, Hyperlipdemia Renal/: Yes: Renal Inusuff Reproductive: Yes: Postmenopausal ...: No - Alcohol/Substance Use Hx Alcohol Use: No - Smoking History Smoking history: Never smoked Aproximately how many cigarettes per day: 0 Home Medications - Allergies Allergies/Adverse Reactions: Allergies Allergy/AdvReac Type Severity Reaction Status Date / Time No Known Allergies Allergy Verified 08/01/19 08:09 - Home Medications Home Medications: Ambulatory Orders Atorvastatin Ca [Lipitor] 10 mg PO HS 08/01/19 Difluprednate [Durezol] 5 ml OP TID 08/01/19 Losartan Potassium [Cozaar -] 50 mg PO DAILY 08/01/19 Metformin HCl [Glucophage] 500 mg PO TID 08/01/19 Family Medical History Family Hx Cardiac Disorders: Father ([place] in his 60s; was a cigarette smoker) Review of Systems - Review of Systems Constitutional: reports: No Symptoms Eyes: reports: No Symptoms HENT: reports: No Symptoms Neck: reports: No Symptoms Cardiovascular: reports: No Symptoms Respiratory: reports: No Symptoms Gastrointestinal: reports: Abdominal Pain Genitourinary: reports: No Symptoms Breasts: reports: No Symptoms Reported Musculoskeletal: reports: No Symptoms Integumentary: reports: No Symptoms Neurological: reports: No Symptoms Endocrine: reports: No Symptoms Hematology/Lymphatic: reports: No Symptoms Psychiatric: reports: No Symptoms - Risk Factors Known Risk Factors: Yes: Age, Diabetes Mellitus, Family History, Gender, Hypercholesterolemia, Hypertension, Physical Inactivity. No: Prior [place] /Emb Stroke, Smoking Vital Signs: Vital Signs Temperature 100.5 F H 08/02/19 13:50 Pulse Rate 92 H 08/02/19 13:50 Respiratory Rate 16 08/02/19 13:50 Blood Pressure 188/82 H 08/02/19 13:50 O2 Sat by Pulse Oximetry (%) 96 08/02/19 10:00 Constitutional: Yes: No Distress, Calm, Obese Eyes: Yes: WNL HENT: Yes: WNL Neck: Yes: WNL Respiratory: Yes: WNL Gastrointestinal: Yes: Soft, Abdomen, Obese. No: Tenderness Renal/: No: Anuria Cardiovascular: Yes: Regular Rate and Rhythm, Gallop (S4) JVD: No Carotid Bruit: No PMI: Non-Displaced Heart Sounds: Yes: S1, S2, S4 Murmur: Yes: Systolic Murmur, Grade 1 Musculoskeletal: Yes: WNL Extremities: Yes: WNL Edema: No Peripheral Pulses WNL: Yes Integumentary: Yes: WNL Neurological: Yes: WNL ...Motor Strength: WNL Psychiatric: Yes: WNL - Other Data Labs, Other Data: CBC, BMP 08/02/19 07:08 08/02/19 07:08 INR, PTT INR 1.03 (0.83-1.09) 08/01/19 08:20 Troponin, BNP 08/01/19 23:00 Troponin I < 0.02 Troponin, BNP 08/01/19 23:00 Troponin I < 0.02 Abnormal Lab Results 08/02/19 08/02/19 07:08 07:08 WBC 24.4 H Absolute Neuts (auto) 20.4 H Neutrophils % 83.8 H Neutrophils % (Manual) 84.0 H Lymphocytes % 6.5 L Lymphocytes % (Manual) 6.0 L Anion Gap 6 L BUN 23.6 H Random Glucose 183 H AST 13 L Albumin 3.0 L Echo: Pending Imaging - Results Chest X-ray: Image Reviewed EKG: Image Reviewed (NSR; RBBB LAFB (bifascicular block)) Problem List - Problems (1) HTN (hypertension) Assessment/Plan: On losartan at home, but PO medications held pending cholecystecomy. Will start enalapril 1.25 mg q 6h IVPD. Code(s): I10 - ESSENTIAL (PRIMARY) HYPERTENSION (2) Hyperlipidemia Assessment/Plan: await lipid profile. Code(s): E78.5 - HYPERLIPIDEMIA, UNSPECIFIED (3) Diabetes Code(s): E11.9 - TYPE 2 DIABETES MELLITUS WITHOUT COMPLICATIONS (4) Morbid obesity Code(s): E66.01 - MORBID (SEVERE) OBESITY DUE TO EXCESS CALORIES (5) Cholecystitis, acute Assessment/Plan: Pt walks short distances at home. She also walks up and down 16 steps at home several times a day without chestr pain or dyspnea. No prior hx chest pain, dyspnea, arrhythmia, or leg swelling. Await ECHO for LVEF, valve statuss. Addendum: ECHO: hyperdynamic LVEF (>70%); mildly dilated RV, with normal RVEF; abnormal diastolic compliance; moderate biatrial enlargement; mildly dilated ascending aorta; mild MR and TR; trivial pericardial effusion. From a cardiac perspective, thee are no absolute contraindications for Ms. Neff to undergo cholecystecomy. (Cardiac coverage for Dr. Medina). Code(s): K81.0 - ACUTE CHOLECYSTITIS (6) Bifascicular block Code(s): I45.2 - BIFASCICULAR BLOCK
--- NOTE | 2019-08-02 16:48 | ECHO ---
Version: 1 Name: MELISSA LEY Exam: Adult Echocardiogram Study Date: 08/02/2019, 2:06 PM Age: 68 Years Left Ventricle The left ventricle is hyperdynamic. Ejection Fraction = >70%. The transmitral spectral Doppler flow pattern is suggestive of impaired LV relaxation. Right Ventricle The right ventricle is mildly dilated. The right ventricular systolic function is normal. Atria The left atrium is moderately dilated. The right atrium is moderately dilated. Mitral Valve There is mild mitral valve thickening. There is mild mitral regurgitation. Tricuspid Valve The tricuspid valve is normal. There is mild tricuspid regurgitation. Aortic Valve There is mild aortic valve thickening. Pulmonic Valve The pulmonic valve is not well visualized. Great Vessels The aortic root is normal size. Mildly dilated ascending aorta. Pericardium/Pleura Trivial pericardial effusion not hemodynamically significant. Summary Statements The left ventricle is hyperdynamic. Ejection Fraction = >70%. The transmitral spectral Doppler flow pattern is suggestive of impaired LV relaxation. The right ventricle is mildly dilated. The right ventricular systolic function is normal. The left atrium is moderately dilated. The right atrium is moderately dilated. There is mild mitral valve thickening. There is mild mitral regurgitation. The tricuspid valve is normal. There is mild tricuspid regurgitation. There is mild aortic valve thickening. The pulmonic valve is not well visualized. The aortic root is normal size. Mildly dilated ascending aorta. Trivial pericardial effusion not hemodynamically significant Javon Lambert 08/02/2019, 4:48 PM Ordering Physician: Tracey Wisdom Performed By: Alysa Perry
[2019-08-02] MEDS: ENALAPRILAT DIHYDRATE 1.25 MG/1 ML VIAL IVPB SCH ×2 (19:12→21:00)
[2019-08-02] MEDS ORDERED: PIPERACILLIN/TAZOB 3.375 GM 3.375 GM in DEXTROSE 5%-WATER - 50 ML IVPB ONE (19:56)
[2019-08-02] MEDS ORDERED: DEXTROSE 5%-WATER - 50 ML IVPB ONE (21:43)
[2019-08-02] MEDS ORDERED: PIPERACILLIN/TAZOBACTAM 3.375 GM VIAL IVPB ONE (21:43)
[2019-08-02] MEDS: MORPHINE SULFATE 2 MG/ML VIAL IVPUSH PRN (21:53)
[2019-08-03] MEDS: ENALAPRILAT DIHYDRATE 1.25 MG/1 ML VIAL IVPB SCH ×4 (02:54→21:20)
[2019-08-03] MEDS: PANTOPRAZOLE SODIUM 40 MG VIAL IVPUSH SCH (10:22)
[2019-08-03] MEDS ORDERED: PROPOFOL 20 ML ONE (11:22)
[2019-08-03] MEDS ORDERED: ROCURONIUM BROMIDE 50 MG/5 ML SYRINGE ONE ×2 (11:22→13:40)
[2019-08-03] MEDS ORDERED: ePHEDrine SULFATE 50 MG/1 ML AMPULE ONE (11:22)
[2019-08-03] MEDS ORDERED: SUCCINYLCHOLINE CHLORIDE 200 MG/10 ML SYRINGE ONE (11:23)
[2019-08-03] MEDS ORDERED: PIPERACILLIN/TAZOB 3.375 GM 3.375 GM in DEXTROSE 5%-WATER - 50 ML IVPB SCH (12:00)
[2019-08-03] MEDS ORDERED: PIPERACILLIN/TAZOBACTAM 3.375 GM VIAL IVPB ONE ×3 (12:04→17:36)
[2019-08-03] MEDS ORDERED: DEXTROSE 5%-WATER - 50 ML IVPB ONE ×2 (12:04→17:36)
[2019-08-03] MEDS ORDERED: BUPIVACAINE HCL/PF 0.5% (5 MG/ML) 30 ML VIAL IJ ONE ×3 (12:07→13:07)
--- NOTE | 2019-08-03 12:09 | CON.ID ---
Consult - Past Medical History Cardio/Vascular: Yes: CHF (diastolic ), HTN, Hyperlipdemia Renal/: Yes: Renal Inusuff ...: No - Alcohol/Substance Use Hx Alcohol Use: No - Smoking History Smoking history: Never smoked Aproximately how many cigarettes per day: 0 Home Medications - Allergies Allergies/Adverse Reactions: Allergies Allergy/AdvReac Type Severity Reaction Status Date / Time No Known Allergies Allergy Verified 08/01/19 08:09 - Home Medications Home Medications: Ambulatory Orders Atorvastatin Ca [Lipitor] 10 mg PO HS 08/01/19 Difluprednate [Durezol] 5 ml OP TID 08/01/19 Losartan Potassium [Cozaar -] 50 mg PO DAILY 08/01/19 Metformin HCl [Glucophage] 500 mg PO TID 08/01/19 Physical Exam Vital Signs: Vital Signs Temperature 99.7 F H 08/03/19 10:00 Pulse Rate 83 08/03/19 10:00 Respiratory Rate 18 08/03/19 10:00 Blood Pressure 140/66 08/03/19 10:00 O2 Sat by Pulse Oximetry (%) 96 08/03/19 02:00 Labs: CBC, BMP 08/02/19 07:08 08/02/19 07:08
[2019-08-03] MEDS ORDERED: fentaNYL CITRATE 250 MCG/5 ML VIAL ONE ×2 (12:35→13:25)
[2019-08-03] MEDS ORDERED: NEOSTIGMINE METHYLSULFATE 0.5 MG/ML - 10 ML MDV ONE (15:13)
[2019-08-03] MEDS ORDERED: GLYCOPYRROLATE 0.2 MG/1 ML VIAL ONE ×2 (15:13)
--- NOTE | 2019-08-03 15:21 | PN ---
Progress Note, Physician History of Present Illness: POD #0 laparoscopic cholecystectomy with umbilical hernia repair, seen in PACU, reports incisional discomfort. - Current Medication List Current Medications: Active Medications Acetaminophen (Ofirmev Injection -) 1,000 mg IVPB Q6H PRN PRN Reason: FEVER Enalaprilat (Vasotec Injection -) 1.25 mg IVPB Q6H-IV OCHOA Last Admin: 08/03/19 10:22 Dose: 1.25 mg Sodium Chloride (Normal Saline -) 1,000 mls @ 75 mls/hr IV ASDIR OCHOA Last Admin: 08/02/19 19:10 Dose: 75 mls/hr Piperacillin Sod/Tazobactam (Sod 3.375 gm/ Dextrose) 50 mls @ 100 mls/hr IVPB Q8H-IV OCHOA; Protocol Last Admin: 08/03/19 12:00 Dose: 100 mls/hr Morphine Sulfate (Morphine Sulfate) 2 mg IVPUSH Q4H PRN PRN Reason: PAIN LEVEL 4 - 6 Last Admin: 08/02/19 21:53 Dose: 2 mg Ondansetron HCl (Zofran Injection) 4 mg IVPB Q4H PRN PRN Reason: NAUSEA AND/OR VOMITING Last Admin: 08/01/19 18:30 Dose: 4 mg Pantoprazole Sodium (Protonix Iv) 40 mg IVPUSH DAILY [facility] Last Admin: 08/03/19 10:22 Dose: 40 mg - Objective Vital Signs: Vital Signs Temperature 99.7 F H 08/03/19 10:00 Pulse Rate 83 08/03/19 10:00 Respiratory Rate 18 08/03/19 10:00 Blood Pressure 140/66 08/03/19 10:00 O2 Sat by Pulse Oximetry (%) 96 08/03/19 09:00 Constitutional: Yes: No Distress, Calm Neck: Yes: Supple Cardiovascular: Yes: Regular Rate and Rhythm Respiratory: Yes: Regular, Diminished Gastrointestinal: Yes: Soft, Hypoactive Bowel Sounds, Other (Post-op) Edema: No Labs: CBC, BMP 08/02/19 07:08 08/02/19 07:08 INR, PTT INR 1.03 (0.83-1.09) 08/01/19 08:20 - ....Imaging EKG: Report Reviewed (Tele: NSR) Assessment/Plan 08/02/2019 Hyperdynamic LVEF>70%, impaired LV relaxation, mildly dilated RV with normal RV fxn, mod [place], mild MR, TR, mildly dilated aorta - Problems (1) HTN (hypertension) Assessment/Plan: On losartan at home, but PO medications held pending cholecystecomy. Continue enalapril 1.25 mg q 6h IVPD pending buddhist of oral intake Code(s): I10 - ESSENTIAL (PRIMARY) HYPERTENSION (2) Hyperlipidemia Assessment/Plan: await lipid profile. Code(s): E78.5 - HYPERLIPIDEMIA, UNSPECIFIED (3) Diabetes Code(s): E11.9 - TYPE 2 DIABETES MELLITUS WITHOUT COMPLICATIONS (4) Morbid obesity Code(s): E66.01 - MORBID (SEVERE) OBESITY DUE TO EXCESS CALORIES (5) Cholecystitis, acute Assessment/Plan: POD #0 laparoscopic cholecystectomy with umbilical hernia repair Addendum: ECHO: hyperdynamic LVEF (>70%); mildly dilated RV, with normal RVEF; abnormal diastolic compliance; moderate biatrial enlargement; mildly dilated ascending aorta; mild MR and TR; trivial pericardial effusion. Continue empiric abx course, analgesia as needed, DVT prophylaxis (Cardiac coverage for Dr. Medina). Code(s): K81.0 - ACUTE CHOLECYSTITIS (6) Bifascicular block Code(s): I45.2 - BIFASCICULAR BLOCK
[2019-08-03] MEDS ORDERED: PROMETHAZINE HCL 25 MG/1 ML VIAL IVPUSH PRN ×2 (15:46→15:58)
[2019-08-03] MEDS ORDERED: oxyCODONE HCL 5 MG TABLET PO PRN ×2 (15:46→15:58)
[2019-08-03] MEDS ORDERED: ONDANSETRON 4 MG/2 ML VIAL IVPUSH PRN ×2 (15:46→15:58)
[2019-08-03] MEDS ORDERED: ACETAMINOPHEN 1000 MG/100 ML VIAL (NON FORMULARY) IVPB ONE ×2 (15:51→15:58)
[2019-08-03] MEDS ORDERED: ACETAMINOPHEN INJECTION 100 ML IVPB ONE (15:52)
[2019-08-03] MEDS ORDERED: ACETAMINOPHEN 1000 MG/100 ML VIAL (NON FORMULARY) IVPB PRN ×2 (15:58→22:00)
--- NOTE | 2019-08-03 15:59 | OP ---
Operative Note - Note: Operative Date: 08/03/19 Pre-Operative Diagnosis: acute cholecystits, cholelithiasis, umbilical hernia Operation: laparoscopic cholecystectomy with umbilical hernia repair Surgeon: Yeison Broussard Rf Design Engineer: Kiana Johnson Anesthesiologist/FISH BUTCHER: Lucio Gardner Anesthesia: General Specimens Removed: gallbladder Estimated Blood Loss (mls): 50 Fluid Volume Replaced (mls): 2,000 Operative Report Dictated: Yes
--- NOTE | 2019-08-03 16:03 | SURG ---
Surgery Food And Drug Research Scientist Note Food And Drug Research Scientist: Kiana Johnson PA-C Date of Service: 08/03/19 Diagnosis: acute cholecystits, cholelithiasis, umbilical hernia Procedure: acute cholecystits, cholelithiasis, umbilical hernia I was present for the entirety of the operative procedure. For further detail, please refer to operative report. Visit type - Case Type Case Type: ED Admission - Emergency Emergency Visit: Yes ED Registration Date: 08/01/19 Care time: The patient presented to the Emergency Department on the above date and was hospitalized for further evaluation of their emergent condition. - New patient This patient is new to me today: Yes Date on this admission: 08/03/19
[2019-08-03 16:31] LABS: BASO % 0.2 % (0-2.0); EOS % 0.1 % (0-4.5); HEMOGLOBIN 12.1 GM/dL (10.7-15.3); LYMPH % 6.9 % (8-40); MCH 27.7 pg (25.7-33.7); MCHC 32.7 g/dl (32.0-36.0); MEAN CELL VOLUME 84.6 fl (80-96); MEAN PLT VOLUME 9.8 fl (7.5-11.1); MONO % 3.8 % (3.8-10.2); PLATELET COUNT 171 K/MM3 (134-434); RBC 4.37 M/mm3 (3.60-5.2); RDW 14.8 % (11.6-15.6); WHITE BLOOD COUNT 17.7 K/mm3 (4.0-10.0)
[2019-08-03] MEDS ORDERED: ONDANSETRON 4 MG/2 ML VIAL ONE (16:43)
[2019-08-03 17:07] LABS: ALBUMIN 2.6 g/dl (3.4-5.0); BILIRUBIN,TOTAL 1.3 mg/dL (0.2-1); BLOOD UREA NITROGEN 26.9 mg/dL (7-18); CALCIUM 8.3 mg/dL (8.5-10.1); CREATININE 1.1 mg/dL (0.55-1.3); POTASSIUM 3.9 mmol/L (3.5-5.1); TOT PROT 5.9 g/dl (6.4-8.2)
--- NOTE | 2019-08-03 17:22 | PN ---
Progress Note, Physician History of Present Illness: s/p surgery - Current Medication List Current Medications: Active Medications Acetaminophen (Ofirmev Injection -) 1,000 mg IVPB Q6H PRN PRN Reason: PAIN LEVEL 1-5 Enalaprilat (Vasotec Injection -) 1.25 mg IVPB Q6H-IV [facility] Fentanyl (Sublimaze Injection -) 25 mcg IVPUSH [id number] PRN PRN Reason: PAIN-PACU ORDER X 4 DOSES ONLY Sodium Chloride (Normal Saline -) 1,000 mls @ 75 mls/hr IV [facility] Piperacillin Sod/Tazobactam (Sod 3.375 gm/ Dextrose) 50 mls @ 100 mls/hr IVPB Q8H-IV [facility]; Protocol Piperacillin Sod/Tazobactam (Sod 3.375 gm/ Dextrose) 50 mls @ 100 mls/hr IVPB Q8H-IV [facility]; Protocol Stop: 08/04/19 10:29 Morphine Sulfate (Morphine Sulfate) 2 mg IVPUSH Q4H PRN PRN Reason: PAIN LEVEL 4 - 6 Ondansetron HCl (Zofran Injection) 4 mg IVPUSH Q6H PRN PRN Reason: NAUSEA AND/OR VOMITING Oxycodone HCl (Roxicodone -) 5 mg PO Q4H PRN PRN Reason: PAIN LEVEL 1-5 Pantoprazole Sodium (Protonix Iv) 40 mg IVPUSH DAILY [facility] Promethazine HCl (Phenergan Injection -) 12.5 mg IVPUSH Q6H PRN PRN Reason: NAUSEA-FOR RESCUE AFTER 15 MIN - Objective Vital Signs: Vital Signs Temperature 100.0 F H 08/03/19 15:40 Pulse Rate 88 08/03/19 16:30 Respiratory Rate 21 H 08/03/19 16:30 Blood Pressure 129/78 08/03/19 16:30 O2 Sat by Pulse Oximetry (%) 93 L 08/03/19 16:30 Constitutional: Yes: No Distress HENT: Yes: Atraumatic Neck: Yes: Supple Cardiovascular: Yes: Regular Rate and Rhythm Respiratory: Yes: CTA Bilaterally Gastrointestinal: Yes: Tenderness Extremities: Yes: WNL Edema: No Neurological: Yes: Alert, Oriented Labs: CBC, BMP 08/03/19 16:15 08/03/19 16:15 INR, PTT INR 1.03 (0.83-1.09) 08/01/19 08:20 Problem List - Problems (1) RUQ abdominal pain Assessment/Plan: s/p cholecystectomy on clear liquid diet prn pain meds Code(s): R10.11 - RIGHT UPPER QUADRANT PAIN (2) Chest pain Assessment/Plan: troponins negative Code(s): R07.9 - CHEST PAIN, UNSPECIFIED
[2019-08-03] MEDS: SODIUM CHLORIDE 1,000 ML IV SCH (17:40)
[2019-08-03] MEDS: PIPERACILLIN/TAZOB 3.375 GM 3.375 GM in DEXTROSE 5%-WATER - 50 ML IVPB SCH (18:31)
[2019-08-03] MEDS: MORPHINE SULFATE 2 MG/ML VIAL IVPUSH PRN (19:28)
[2019-08-04] MEDS ORDERED: PIPERACILLIN/TAZOBACTAM 3.375 GM VIAL IVPB ONE ×4 (01:36→17:03)
[2019-08-04] MEDS ORDERED: DEXTROSE 5%-WATER - 50 ML IVPB ONE ×3 (01:36→17:03)
[2019-08-04] MEDS: PIPERACILLIN/TAZOB 3.375 GM 3.375 GM in DEXTROSE 5%-WATER - 50 ML IVPB SCH ×3 (01:41→17:07)
[2019-08-04] MEDS ORDERED: PIPERACILLIN/TAZOB 3.375 GM 3.375 GM in DEXTROSE 5%-WATER - 50 ML IVPB SCH (02:00)
[2019-08-04] MEDS: ENALAPRILAT DIHYDRATE 1.25 MG/1 ML VIAL IVPB SCH (02:36)
[2019-08-04] MEDS: MORPHINE SULFATE 2 MG/ML VIAL IVPUSH PRN ×2 (05:50→19:35)
[2019-08-04 07:07] LABS: BASO % 0.2 % (0-2.0); EOS % 0.1 % (0-4.5); HEMATOCRIT 35.5 % (32.4-45.2); HEMOGLOBIN 11.6 GM/dL (10.7-15.3); LYMPH % 10.8 % (8-40); MCH 27.9 pg (25.7-33.7); MCHC 32.7 g/dl (32.0-36.0); MEAN CELL VOLUME 85.2 fl (80-96); MEAN PLT VOLUME 9.9 fl (7.5-11.1); MONO % 8.2 % (3.8-10.2); NEUT % 80.7 % (42.8-82.8); PLATELET COUNT 180 K/MM3 (134-434); RBC 4.16 M/mm3 (3.60-5.2); RDW 14.8 % (11.6-15.6); WHITE BLOOD COUNT 16.4 K/mm3 (4.0-10.0)
[2019-08-04 07:54] LABS: ALBUMIN 2.2 g/dl (3.4-5.0); BILIRUBIN,TOTAL 0.7 mg/dL (0.2-1); BLOOD UREA NITROGEN 21.3 mg/dL (7-18); CREATININE 0.9 mg/dL (0.55-1.3); POTASSIUM 3.8 mmol/L (3.5-5.1); TOT PROT 5.6 g/dl (6.4-8.2)
--- NOTE | 2019-08-04 09:56 | PN ---
Progress Note, Physician History of Present Illness: POD #1 laparoscopic cholecystectomy with umbilical hernia repair, incisional discomfort improving, tolerating oatmeal, no flatus yet. - Current Medication List Current Medications: Active Medications Acetaminophen (Ofirmev Injection -) 1,000 mg IVPB Q6H PRN PRN Reason: PAIN LEVEL 1-5 Last Admin: 08/03/19 16:00 Dose: 1,000 mg Atorvastatin Calcium (Lipitor -) 10 mg PO HS [facility] Sodium Chloride (Normal Saline -) 1,000 mls @ 75 mls/hr IV ASDIR [facility] Last Admin: 08/03/19 17:40 Dose: 0 mls Piperacillin Sod/Tazobactam (Sod 3.375 gm/ Dextrose) 50 mls @ 100 mls/hr IVPB Q8H-IV [facility]; Protocol Piperacillin Sod/Tazobactam (Sod 3.375 gm/ Dextrose) 50 mls @ 100 mls/hr IVPB Q8H-IV [facility]; Protocol Stop: 08/04/19 10:29 Last Admin: 08/04/19 01:41 Dose: 100 mls/hr Losartan Potassium (Cozaar -) 50 mg PO DAILY [facility] Metformin HCl (Glucophage -) 500 mg PO TID [facility] Morphine Sulfate (Morphine Sulfate) 2 mg IVPUSH Q4H PRN PRN Reason: PAIN LEVEL 4 - 6 Last Admin: 08/04/19 05:50 Dose: 2 mg Non-Formulary Medication (Difluprednate [Durezol]) 5 ml OP TID [facility] Oxycodone HCl (Roxicodone -) 5 mg PO Q4H PRN PRN Reason: PAIN LEVEL 1-5 Pantoprazole Sodium (Protonix Iv) 40 mg IVPUSH DAILY [facility] - Objective Vital Signs: Vital Signs Temperature 98.2 F 08/04/19 06:00 Pulse Rate 86 08/04/19 06:00 Respiratory Rate 18 08/04/19 06:00 Blood Pressure 130/75 08/04/19 06:00 O2 Sat by Pulse Oximetry (%) 94 L 08/03/19 21:00 Constitutional: Yes: No Distress, Calm Neck: Yes: Supple Cardiovascular: Yes: Regular Rate and Rhythm Respiratory: Yes: Regular, Diminished, On Nasal O2 Gastrointestinal: Yes: Soft, Hypoactive Bowel Sounds, Other (NETO drain in place) Edema: No Labs: CBC, BMP 08/04/19 05:50 08/04/19 05:50 INR, PTT INR 1.03 (0.83-1.09) 08/01/19 08:20 - ....Imaging EKG: Report Reviewed (Tele: w/ PAC) Assessment/Plan 08/02/2019 Hyperdynamic LVEF>70%, impaired LV relaxation, mildly dilated RV with normal RV fxn, mod ISRAEL, mild MR, TR, mildly dilated aorta - Problems (1) HTN (hypertension) Assessment/Plan: Resume losartan 50 qd Code(s): I10 - ESSENTIAL (PRIMARY) HYPERTENSION (2) Hyperlipidemia Assessment/Plan: Resumed Lipitor 10 qhs Code(s): E78.5 - HYPERLIPIDEMIA, UNSPECIFIED (3) Diabetes Code(s): E11.9 - TYPE 2 DIABETES MELLITUS WITHOUT COMPLICATIONS Resumed metformin 500 tid (4) Morbid obesity Code(s): E66.01 - MORBID (SEVERE) OBESITY DUE TO EXCESS CALORIES (5) Cholecystitis, acute Assessment/Plan: POD #1 laparoscopic cholecystectomy with umbilical hernia repair Addendum: ECHO: hyperdynamic LVEF (>70%); mildly dilated RV, with normal RVEF; abnormal diastolic compliance; moderate biatrial enlargement; mildly dilated ascending aorta; mild MR and TR; trivial pericardial effusion. Continue empiric abx course, analgesia as needed, DVT prophylaxis, advance diet as tolerated, drain management per surgery Code(s): K81.0 - ACUTE CHOLECYSTITIS (6) Bifascicular block Code(s): I45.2 - BIFASCICULAR BLOCK
[2019-08-04] MEDS: PANTOPRAZOLE SODIUM 40 MG VIAL IVPUSH SCH (10:39)
[2019-08-04] MEDS: LOSARTAN POTASSIUM 50 MG TABLET (FP) PO SCH (10:39)
[2019-08-04] MEDS: SODIUM CHLORIDE 1,000 ML IV SCH ×2 (10:49→17:04)
--- NOTE | 2019-08-04 10:56 | PN ---
Progress Note, Physician History of Present Illness: stable feels better - Current Medication List Current Medications: Active Medications Acetaminophen (Ofirmev Injection -) 1,000 mg IVPB Q6H PRN PRN Reason: PAIN LEVEL 1-5 Last Admin: 08/03/19 16:00 Dose: 1,000 mg Atorvastatin Calcium (Lipitor -) 10 mg PO HS [facility] Sodium Chloride (Normal Saline -) 1,000 mls @ 75 mls/hr IV ASDIR [facility] Last Admin: 08/04/19 10:49 Dose: 75 mls/hr Piperacillin Sod/Tazobactam (Sod 3.375 gm/ Dextrose) 50 mls @ 100 mls/hr IVPB Q8H-IV [facility]; Protocol Losartan Potassium (Cozaar -) 50 mg PO DAILY [facility] Last Admin: 08/04/19 10:39 Dose: 50 mg Metformin HCl (Glucophage -) 500 mg PO TIDAC [facility] Morphine Sulfate (Morphine Sulfate) 2 mg IVPUSH Q4H PRN PRN Reason: PAIN LEVEL 4 - 6 Last Admin: 08/04/19 05:50 Dose: 2 mg Non-Formulary Medication (Difluprednate [Durezol]) 5 ml OP TID [facility] Oxycodone HCl (Roxicodone -) 5 mg PO Q4H PRN PRN Reason: PAIN LEVEL 1-5 Pantoprazole Sodium (Protonix Iv) 40 mg IVPUSH DAILY [facility] Last Admin: 08/04/19 10:39 Dose: 40 mg - Objective Vital Signs: Vital Signs Temperature 98.2 F 08/04/19 06:00 Pulse Rate 84 08/04/19 10:45 Respiratory Rate 18 08/04/19 10:45 Blood Pressure 148/82 08/04/19 10:45 O2 Sat by Pulse Oximetry (%) 94 L 08/03/19 21:00 Constitutional: Yes: No Distress, Calm, Obese Cardiovascular: Yes: S1, S2 Respiratory: Yes: Regular, CTA Bilaterally, Other (crackles) Gastrointestinal: Yes: Soft, Hypoactive Bowel Sounds Musculoskeletal: Yes: WNL Extremities: Yes: WNL Wound/Incision: Yes: Clean/Dry Neurological: Yes: Alert, Oriented Psychiatric: Yes: Alert, Oriented Labs: CBC, BMP 08/04/19 05:50 08/04/19 05:50 INR, PTT INR 1.03 (0.83-1.09) 08/01/19 08:20 Assessment/Plan - Problems (1) HTN (hypertension) Code(s): I10 - ESSENTIAL (PRIMARY) HYPERTENSION (2) Hyperlipidemia Code(s): E78.5 - HYPERLIPIDEMIA, UNSPECIFIED (3) Diabetes Code(s): E11.9 - TYPE 2 DIABETES MELLITUS WITHOUT COMPLICATIONS (4) Morbid obesity Code(s): E66.01 - MORBID (SEVERE) OBESITY DUE TO EXCESS CALORIES (5) Cholecystitis, acute Code(s): K81.0 - ACUTE CHOLECYSTITIS (6) Bifascicular block Code(s): I45.2 - BIFASCICULAR BLOCK plan continue abx mgmt rest as per the team
--- NOTE | 2019-08-04 11:19 | OP ---
DATE OF OPERATION: 08/03/2019 PREOPERATIVE DIAGNOSIS: Acute cholecystitis and cholelithiasis and umbilical hernia. POSTOPERATIVE DIAGNOSIS: Gangrenous cholecystitis, cholelithiasis, and umbilical hernia. PROCEDURE: Laparoscopic cholecystectomy with umbilical hernia repair. SURGEON: Yeison Broussard MD ART INSTALLER: FERNY Cabrera ANESTHESIA: General. OPERATIVE FINDINGS: There was an umbilical hernia with a defect at the umbilicus of approximately 2.5 cm. There was gangrenous cholecystitis and cholelithiasis, and the rest of the findings were unremarkable. DESCRIPTION OF PROCEDURE: The patient was placed on the operating room table in supine position. After the induction of general anesthesia, the patient's abdomen was prepped with ChloraPrep and draped in sterile fashion. A time-out was taken , and an infraumbilical skin crease incision was made from the 3 to 9 o'clock position using scalpel. This was taken down to the abdominal wall and the umbilical stalk bluntly encircled. The umbilicus was dissected off the abdominal wall and redundant sac excised as well as adherent omentum. Once the hernia was fully reduced and the underside of the abdominal wall cleared, a 12-mm Eh balloon cannula was placed and pneumoperitoneum established to an intra-abdominal pressure of 15 mmHg. Laparoscopy was carried out, and the previously noted findings were observed. A 12-mm subxiphoid and two 5-mm right lower quadrant lateral ports were placed. Because of the operative findings and tense state of the gallbladder, a decompression needle was introduced into the gallbladder and approximately 50 mL of bile suctioned out. The gallbladder was then placed on cephalad and lateral traction and dissection begun in the triangle of Calot using blunt dissection. The cystic duct was identified coursing from the neck of the gallbladder distally to the common bile duct. It was dissected proximally and distally for length. The cystic artery was similarly identified, and then a critical view of safety was taken. Additional adhesions and inflammation on the cystic duct were cleared using blunt dissection. Next, the duct was stapled proximally and distally with 10-mm clips and the duct divided using the Endo Aman. Similarly, the artery was clipped twice distally and proximally and divided using the Endo Aman. A posterior branch was clipped and divided as well. The gallbladder was then removed from the liver bed in a retrograde fashion using the electrocautery. Once removed from the liver bed, it was placed in EndoCatch and brought out through the subxiphoid port. Hemostasis was secured with electrocautery, and a sheet of Surgicel was placed in the liver bed after copious irrigation was carried out to remove all clots and bile that had spilled through the previous aspiration site in the gallbladder. Next, a 10-mm Jann-Goldsmith drain was placed in the right hepatorenal fossa and brought out through the lateral 5-mm port site where it was secured to the skin with 2-0 silk suture. Again, hemostasis was verified and then all ports were removed under laparoscopic vision without evidence of bleeding from the port sites. The umbilicus was then repaired using continuous 0 Prolene, and the deep dermis at the umbilicus was reapproximated with 3-0 Vicryl. All port sites were infiltrated with 0.5% Marcaine and the skin edges closed with 4-0 Monocryl in a subcuticular, continuous fashion. The drain was connected to the bulb self-suction. Steri-Strips were placed on the port sites followed by Band-Aid dressings and the procedure terminated at this point and the patient aroused from general anesthesia and transferred to the post anesthesia care unit in a stable condition awake and alert. ESTIMATED BLOOD LOSS: 150 mL. REPLACEMENTS: Crystalloid. DRAINS: One 10-mm Jann-Goldsmith. SPECIMENS: Gallbladder and contents to Pathology. I, Yeison Broussard, was physically present in the operating room from the time the patient was placed on the operating room table until she was transferred to the post anesthesia care unit in [facility]. MD ANDRE Atkinson/[id number] MTDD
[2019-08-04] MEDS: metFORMIN HCL 500 MG TABLET (FP) PO SCH ×2 (12:02→17:07)
--- NOTE | 2019-08-04 12:25 | PN ---
Progress Note (short form) - Note Progress Note: Anesthesia post op note POD#1, S/P Lap cholecystectomy and umbilical hernia repair under GA. Pat seen and examined. AAOX3.VSS. No apparent post anesthesia complications.
[2019-08-04] MEDS ORDERED: PATIENT'S OWN MEDICATION (NON-FORMULARY) (Difluprednate [Durezol] 5 ML) OP SCH (14:00)
--- NOTE | 2019-08-04 16:48 | PN ---
Progress Note, Physician - Current Medication List Current Medications: Active Medications Acetaminophen (Ofirmev Injection -) 1,000 mg IVPB Q6H PRN PRN Reason: PAIN LEVEL 1-5 Last Admin: 08/03/19 16:00 Dose: 1,000 mg Atorvastatin Calcium (Lipitor -) 10 mg PO HS [facility] Sodium Chloride (Normal Saline -) 1,000 mls @ 75 mls/hr IV ASDIR [facility] Last Admin: 08/04/19 10:49 Dose: 75 mls/hr Piperacillin Sod/Tazobactam (Sod 3.375 gm/ Dextrose) 50 mls @ 100 mls/hr IVPB Q8H-IV [facility] Losartan Potassium (Cozaar -) 50 mg PO DAILY [facility] Last Admin: 08/04/19 10:39 Dose: 50 mg Metformin HCl (Glucophage -) 500 mg PO TIDAC [facility] Last Admin: 08/04/19 12:02 Dose: 500 mg Morphine Sulfate (Morphine Sulfate) 2 mg IVPUSH Q4H PRN PRN Reason: PAIN LEVEL 4 - 6 Last Admin: 08/04/19 05:50 Dose: 2 mg Non-Formulary Medication (Difluprednate [Durezol]) 5 ml OP TID [facility] Oxycodone HCl (Roxicodone -) 5 mg PO Q4H PRN PRN Reason: PAIN LEVEL 1-5 Pantoprazole Sodium (Protonix Iv) 40 mg IVPUSH DAILY [facility] Last Admin: 08/04/19 10:39 Dose: 40 mg - Objective Vital Signs: Vital Signs Temperature 99.0 F 08/04/19 13:45 Pulse Rate 87 08/04/19 13:45 Respiratory Rate 16 08/04/19 13:45 Blood Pressure 158/86 08/04/19 13:45 O2 Sat by Pulse Oximetry (%) 94 L 08/04/19 09:00 Constitutional: Yes: No Distress HENT: Yes: Atraumatic Neck: Yes: Supple Cardiovascular: Yes: Regular Rate and Rhythm Respiratory: Yes: CTA Bilaterally Gastrointestinal: Yes: Normal Bowel Sounds, Tenderness (at the surgery site) Extremities: Yes: WNL Neurological: Yes: Alert, Oriented Labs: CBC, BMP 08/04/19 05:50 08/04/19 05:50 INR, PTT INR 1.03 (0.83-1.09) 08/01/19 08:20 Problem List - Problems (1) RUQ abdominal pain Assessment/Plan: s/p cholecystectomy on diabetic diet Code(s): R10.11 - RIGHT UPPER QUADRANT PAIN (2) Chest pain Assessment/Plan: troponins negative Code(s): R07.9 - CHEST PAIN, UNSPECIFIED
[2019-08-04] MEDS ORDERED: ATORVASTATIN CA 10 MG TABLET (FP) PO SCH (22:00)
[2019-08-05] MEDS ORDERED: DEXTROSE 5%-WATER - 50 ML IVPB ONE ×2 (01:33→08:55)
[2019-08-05] MEDS ORDERED: PIPERACILLIN/TAZOBACTAM 3.375 GM VIAL IVPB ONE ×2 (01:33→08:54)
[2019-08-05] MEDS: PIPERACILLIN/TAZOB 3.375 GM 3.375 GM in DEXTROSE 5%-WATER - 50 ML IVPB SCH ×2 (01:38→09:01)
[2019-08-05 06:09] LABS: BASO % 0.3 % (0-2.0); EOS % 1.5 % (0-4.5); HEMATOCRIT 36.8 % (32.4-45.2); HEMOGLOBIN 12.2 GM/dL (10.7-15.3); LYMPH % 14.1 % (8-40); MCH 28.1 pg (25.7-33.7); MCHC 33.1 g/dl (32.0-36.0); MEAN CELL VOLUME 84.8 fl (80-96); MEAN PLT VOLUME 9.7 fl (7.5-11.1); MONO % 9.8 % (3.8-10.2); NEUT % 74.3 % (42.8-82.8); PLATELET COUNT 230 K/MM3 (134-434); RBC 4.34 M/mm3 (3.60-5.2); RDW 14.5 % (11.6-15.6); WHITE BLOOD COUNT 13.7 K/mm3 (4.0-10.0)
[2019-08-05] MEDS: metFORMIN HCL 500 MG TABLET (FP) PO SCH ×2 (06:28→11:32)
[2019-08-05 06:35] LABS: ALBUMIN 2.4 g/dl (3.4-5.0); BILIRUBIN,TOTAL 0.6 mg/dL (0.2-1); CREATININE 0.9 mg/dL (0.55-1.3); POTASSIUM 3.7 mmol/L (3.5-5.1); TOT PROT 6.3 g/dl (6.4-8.2)
[2019-08-05] MEDS: LOSARTAN POTASSIUM 50 MG TABLET (FP) PO SCH (09:01)
[2019-08-05] MEDS: PANTOPRAZOLE SODIUM 40 MG VIAL IVPUSH SCH (09:01)
--- NOTE | 2019-08-05 09:08 | PN ---
Progress Note (short form) - Note Progress Note: 68yo F s/p Lap kishore POD 2, pt seen and examined at bedside. Pt state abd pain is improved. Denies fever, chills, n/v. Vital Signs Temp 98.2 F 08/05/19 08:23 Pulse 80 08/05/19 08:23 Resp 18 08/05/19 08:23 BP 173/72 H 08/05/19 08:23 Pulse Ox 94 L 08/04/19 20:38 Intake & Output 08/04/19 08/04/19 08/05/19 11:59 23:59 11:59 Intake Total 875 1630 170 Output Total 40 10 Balance 875 1590 160 Weight 242 lb Intake: IV 525 750 Normal Saline - 1,000 ml 525 750 @ 75 mls/hr IV ASDIR [facility] Rx#:[id number] IVPB 100 150 50 Oral 250 730 120 Output: Drainage 40 10 Right Abdomen 40 10 Other: Voiding Method Toilet Toilet # Unmeasured Voids Void 2 Bowel Movement No Height 5 ft 5 in Body Mass Index (BMI) 40.2 CBC, BMP 08/05/19 05:35 08/05/19 05:35 PE: Gen: A&OX 3 Resp: breathing comfortably Abd: soft, nondistended, mild diffuse tenderness, drain in place with serosanguinous drainage. Ext: no edema Problem List - Problems (1) Cholecystitis, acute Assessment/Plan: Plan -Drain was removed at bedside without incident. -pt is cleared for discharge from surgery standpoing. Pt should follow up with Dr. Broussard, next week for postop follow up. Case discussed with Dr. Broussard who agrees with plan. Code(s): K81.0 - ACUTE CHOLECYSTITIS
--- NOTE | 2019-08-05 10:23 | PN ---
Progress Note, Physician History of Present Illness: POD #2 laparoscopic cholecystectomy with umbilical hernia repair, incisional discomfort improving, tolerating meals, had BM. - Current Medication List Current Medications: Active Medications Acetaminophen (Ofirmev Injection -) 1,000 mg IVPB Q6H PRN PRN Reason: PAIN LEVEL 1-5 Last Admin: 08/03/19 16:00 Dose: 1,000 mg Atorvastatin Calcium (Lipitor -) 10 mg PO HS [facility] Last Admin: 08/04/19 21:08 Dose: 10 mg Piperacillin Sod/Tazobactam (Sod 3.375 gm/ Dextrose) 50 mls @ 100 mls/hr IVPB Q8H-IV [facility] Last Admin: 08/05/19 09:01 Dose: 100 mls/hr Losartan Potassium (Cozaar -) 50 mg PO DAILY [facility] Last Admin: 08/05/19 09:01 Dose: 50 mg Metformin HCl (Glucophage -) 500 mg PO TIDAC [facility] Last Admin: 08/05/19 06:28 Dose: 500 mg Morphine Sulfate (Morphine Sulfate) 2 mg IVPUSH Q4H PRN PRN Reason: PAIN LEVEL 4 - 6 Last Admin: 08/04/19 19:35 Dose: 2 mg Non-Formulary Medication (Difluprednate [Durezol]) 5 ml OP TID [facility] Oxycodone HCl (Roxicodone -) 5 mg PO Q4H PRN PRN Reason: PAIN LEVEL 1-5 Pantoprazole Sodium (Protonix Iv) 40 mg IVPUSH DAILY [facility] Last Admin: 08/05/19 09:01 Dose: 40 mg - Objective Vital Signs: Vital Signs Temperature 98.2 F 08/05/19 08:23 Pulse Rate 80 08/05/19 08:23 Respiratory Rate 18 08/05/19 08:23 Blood Pressure 173/72 H 08/05/19 08:23 O2 Sat by Pulse Oximetry (%) 94 L 08/04/19 20:38 Constitutional: Yes: No Distress, Calm Neck: Yes: Supple Cardiovascular: Yes: Regular Rate and Rhythm Respiratory: Yes: Regular, CTA Bilaterally Gastrointestinal: Yes: Normal Bowel Sounds, Soft Edema: No Labs: CBC, BMP 08/05/19 05:35 08/05/19 05:35 INR, PTT INR 1.03 (0.83-1.09) 08/01/19 08:20 Assessment/Plan 08/02/2019 Hyperdynamic LVEF>70%, impaired LV relaxation, mildly dilated RV with normal RV fxn, mod ISRA[place], mild MR, TR, mildly dilated aorta - Problems (1) HTN (hypertension) Assessment/Plan: Continue losartan 50 qd Code(s): I10 - ESSENTIAL (PRIMARY) HYPERTENSION (2) Hyperlipidemia Assessment/Plan: Continue Lipitor 10 qhs Code(s): E78.5 - HYPERLIPIDEMIA, UNSPECIFIED (3) Diabetes Code(s): E11.9 - TYPE 2 DIABETES MELLITUS WITHOUT COMPLICATIONS Resumed metformin 500 tid (4) Morbid obesity Code(s): E66.01 - MORBID (SEVERE) OBESITY DUE TO EXCESS CALORIES (5) Cholecystitis, acute Assessment/Plan: POD #2 laparoscopic cholecystectomy with umbilical hernia repair Addendum: ECHO: hyperdynamic LVEF (>70%); mildly dilated RV, with normal RVEF; abnormal diastolic compliance; moderate biatrial enlargement; mildly dilated ascending aorta; mild MR and TR; trivial pericardial effusion. Continue empiric abx course, analgesia as needed, DVT prophylaxis, advance diet as tolerated, drain removed Code(s): K81.0 - ACUTE CHOLECYSTITIS (6) Bifascicular block Code(s): I45.2 - BIFASCICULAR BLOCK
--- NOTE | 2019-08-05 12:24 | DS ---
Physical Examination Vital Signs: Vital Signs Temperature 98.2 F 08/05/19 08:23 Pulse Rate 85 08/05/19 12:21 Respiratory Rate 18 08/05/19 12:21 Blood Pressure 174/97 H 08/05/19 12:21 O2 Sat by Pulse Oximetry (%) 95 08/05/19 09:00 Constitutional: Yes: No Distress HENT: Yes: Atraumatic Neck: Yes: Supple Cardiovascular: Yes: Regular Rate and Rhythm Respiratory: Yes: CTA Bilaterally Gastrointestinal: Yes: Normal Bowel Sounds, Tenderness (mild at the site of surgery) Extremities: Yes: WNL Neurological: Yes: Alert, Oriented Labs: CBC, BMP 08/05/19 05:35 08/05/19 05:35 Discharge Summary Problems reviewed: Yes Reason For Visit: CHEST PAIN Current Active Problems Bifascicular block (Acute) Chest pain (Acute) Cholecystitis, acute (Acute) Diabetes (Acute) HTN (hypertension) (Acute) Hyperlipidemia (Acute) Morbid obesity (Acute) RUQ abdominal pain (Acute) Condition: Improved - Instructions Referrals: Yeison Broussard MD [Staff Physician] - Karen Wylie [Primary Care Provider] - Disposition: HOME - Home Medications Comprehensive Discharge Medication List: Ambulatory Orders Atorvastatin Ca [Lipitor] 10 mg PO HS 08/01/19 Difluprednate [Durezol] 5 ml OP TID 08/01/19 Losartan Potassium [Cozaar -] 50 mg PO DAILY 08/01/19 Metformin HCl [Glucophage] 500 mg PO TID 08/01/19 Amoxicillin/Potassium Clav [Augmentin 875-125 Tablet] 1 each PO BID #10 tablet 08/04/19 mo home
[2019-08-05] MEDS ORDERED: amLODIPine BESYLATE 10 MG TABLET (FP) PO ONE (13:00)
--- NOTE | 2019-08-05 13:32 | PN ---
Progress Note, Physician History of Present Illness: stable no new issues tolerating diet wbc trending down - Current Medication List Current Medications: Active Medications Acetaminophen (Ofirmev Injection -) 1,000 mg IVPB Q6H PRN PRN Reason: PAIN LEVEL 1-5 Last Admin: 08/03/19 16:00 Dose: 1,000 mg Atorvastatin Calcium (Lipitor -) 10 mg PO HS [facility] Last Admin: 08/04/19 21:08 Dose: 10 mg Piperacillin Sod/Tazobactam (Sod 3.375 gm/ Dextrose) 50 mls @ 100 mls/hr IVPB Q8H-IV [facility] Last Admin: 08/05/19 09:01 Dose: 100 mls/hr Losartan Potassium (Cozaar -) 50 mg PO DAILY [facility] Last Admin: 08/05/19 09:01 Dose: 50 mg Metformin HCl (Glucophage -) 500 mg PO TIDAC [facility] Last Admin: 08/05/19 11:32 Dose: 500 mg Morphine Sulfate (Morphine Sulfate) 2 mg IVPUSH Q4H PRN PRN Reason: PAIN LEVEL 4 - 6 Last Admin: 08/04/19 19:35 Dose: 2 mg Non-Formulary Medication (Difluprednate [Durezol]) 5 ml OP TID [facility] Oxycodone HCl (Roxicodone -) 5 mg PO Q4H PRN PRN Reason: PAIN LEVEL 1-5 Pantoprazole Sodium (Protonix Iv) 40 mg IVPUSH DAILY [facility] Last Admin: 08/05/19 09:01 Dose: 40 mg - Objective Vital Signs: Vital Signs Temperature 98.2 F 08/05/19 08:23 Pulse Rate 85 08/05/19 12:21 Respiratory Rate 18 08/05/19 12:21 Blood Pressure 174/97 H 08/05/19 12:21 O2 Sat by Pulse Oximetry (%) 95 08/05/19 09:00 Constitutional: Yes: No Distress, Calm, Obese Cardiovascular: Yes: Regular Rate and Rhythm Respiratory: Yes: Regular, CTA Bilaterally Gastrointestinal: Yes: Normal Bowel Sounds, Soft Musculoskeletal: Yes: WNL Extremities: Yes: WNL Neurological: Yes: Alert, Oriented Psychiatric: Yes: Alert, Oriented Labs: CBC, BMP 08/05/19 05:35 08/05/19 05:35 INR, PTT INR 1.03 (0.83-1.09) 08/01/19 08:20 Assessment/Plan - Problems (1) HTN (hypertension) Code(s): I10 - ESSENTIAL (PRIMARY) HYPERTENSION (2) Hyperlipidemia Code(s): E78.5 - HYPERLIPIDEMIA, UNSPECIFIED (3) Diabetes Code(s): E11.9 - TYPE 2 DIABETES MELLITUS WITHOUT COMPLICATIONS (4) Morbid obesity Code(s): E66.01 - MORBID (SEVERE) OBESITY DUE TO EXCESS CALORIES (5) Cholecystitis, acute Code(s): K81.0 - ACUTE CHOLECYSTITIS (6) Bifascicular block Code(s): I45.2 - BIFASCICULAR BLOCK plan continue abx can be switched to po augmentin for 3- 4days monitor with surgery
[2019-08-05 16:17] VITALS: TEMP 98.2
[2019-08-05 17:11] VITALS: BP 145/76; PULSE 89
--- NOTE | 2019-08-09 13:55 | PATH ---
Surgical Pathology Report Patient Name: MELISSA LEY [facility]. Rec. #: [id number] /Age/Gender: 1950 (Age: 68) / F Account: [id number] Location: [facility] PEDS/ADOL Taken: 08/03/2019 Received: 08/04/2019 Reported: 08/09/2019 Physicians: MD Tracey Talley M.D. Specimen(s) Received A: GALLBLADDER B: OMENTUM Clinical History Cholelithiasis and umbilical hernia Final Diagnosis A. GALLBLADDER, CHOLECYSTECTOMY: ACUTE NECROTIZING/GANGRENOUS CHOLECYSTITIS AND CHOLELITHIASIS. B. OMENTUM, EXCISION: FIBROADIPOSE TISSUE, CONSISTENT WITH OMENTUM. Electronically Signed Bre Spencer M.D. Gross Description A. Received in formalin, labeled "gallbladder," is a 10.8 x 4.0 x 2.5 cm. gallbladder with a 0.2 cm. in length portion of cystic duct attached. The outer surface is brown-green with a focal defect and varies from smooth to shaggy. The lumen contains 3 yellow, irregular choleliths ranging from 1.2-1.7 cm in greatest dimension. There is no bile present within the lumen. The mucosa is red-brown, hemorrhagic and focally green and gangrenous. The wall of the gallbladder measures up to 0.6 cm. in thickness. Tax Analyst sections are submitted in one cassette. B. Received in formalin labeled "omentum," is a 10.0 x 5.5 x 1.7 cm portion of yellow, lobulated adipose tissue. No discrete lesions are identified. Tax Analyst sections are submitted in one cassette. 08/04/2019 [place]08/04/2019
== END 2019-08-05 18:59 | disposition home or self-care (01) | DRG 418 ==
LOC: JER 07:56 → JERBED 13:43 → J4S 17:04 → OBSVTOIN 17:20
PROVIDERS: ADMIT Internal Medicine; ATTEND Internal Medicine
PROC: 0FT44ZZ Resection of Gallbladder, Percutaneous Endoscopic Approach (ICD-10-PCS; principal; 2019-08-03 12:00)
PROC: 0WQF4ZZ Repair Abdominal Wall, Percutaneous Endoscopic Approach (ICD-10-PCS; 2019-08-03 12:00)
DX: K80.00 Calculus of gallbladder with acute cholecystitis without obstruction (principal); I45.2 Bifascicular block; Z68.41 Body mass index [BMI] 40.0-44.9, adult; I10 Essential (primary) hypertension; E78.5 Hyperlipidemia, unspecified; E11.9 Type 2 diabetes mellitus without complications; R00.0 Tachycardia, unspecified; I45.10 Unspecified right bundle-branch block; R07.89 Other chest pain; R11.2 Nausea with vomiting, unspecified; E66.01 Morbid (severe) obesity due to excess calories; R10.11 Right upper quadrant pain; K42.9 Umbilical hernia without obstruction or gangrene
CPT/HCPCS: 36415; 71275-TC; 74174-TC; 76705-TC; 80053; 80061; 81003; 82550; 82553; 82962; 83036; 83690; 83721; 84443; 84484; 85025; 85610; 85730; 86850; 86900; 86901; 87040; 87077; 87086; 88302-TC; 88304-TC; 93005; 93010; 93306-TC; 94760; 99284-25; G0378; J0131; J7030; Q9967